=== PATIENT | female | born 1975 | race African-American/Black ===

== ENCOUNTER 2018-01-17 20:06 | Emergency (ER) | payer MEDICAID, OTHER ==
[~2018-01-17] VITALS: Ht 165.1 cm; Wt 65.0 kg
[~2018-01-17 20:06] MED LIST: KCL; OMEP20TA2
[2018-01-17] MEDS ORDERED: LISINOPRIL 20MG TABLET PO ONE (21:00)
[2018-01-17] MEDS ORDERED: IBUPROFEN 600MG TABLET PO ONE (21:00)
[2018-01-17 21:36] VITALS: BP 135/68
== END 2018-01-17 21:39 | disposition home or self-care (01) ==
LOC: ER 20:06
DX: I16.0 Hypertensive urgency (principal); M25.512 Pain in left shoulder; M25.511 Pain in right shoulder; M54.2 Cervicalgia
CPT/HCPCS: 99283; Z7610